=== PATIENT | female | born 1970 | race Two or more races ===

== ENCOUNTER → 2024-07-22 | Outpatient (CLI) | payer MEDICAID, SELFPAY ==
--- NOTE | 2024-07-22 13:31 | XR_ITS ---
Examination: Steroid injection greater trochanteric bursa with imaging guidance Fluoroscopy Spot fluoroscopic AP films left hip INDICATIONS: Left hip pain bursitis one year. Exam date and time: July 22, 2024 1322 hours Informed consent provided. Technique: A timeout was completed verifying correct patient, procedure, site, positioning. The patient was placed in supine position appropriate for the steroid injection The patient's site was prepped and draped in sterile fashion 5 cc 1% lidocaine administered locally for anesthesia. Sterile drape applied, maximum barrier sterile technique. Utilizing fluoroscopic guidance, 23-gauge needle placed in the greater trochanteric bursa left hip 1 cc Kenalog 40 in 5 cc 0.25% Marcaine introduced into the greater trochanteric bursitis left hip The patient was in satisfactory and stable condition on completion of the procedure Attending radiologist was present for the entire procedure Estimated blood loss 0 cc. Impression: Successful steroid injection greater trochanteric bursitis left hip with imaging guidance Fluoroscopy 0.2 minute radiation dose 4.31 milligray 1 spot fluoroscopic AP left hip film .
[2024-07-22] MEDS: BUPIVACAINE MPF 0.5% 30 ML VIAL EPID (14:04)
[2024-07-22] MEDS: TRIAMCINOLONE ACET INJ 40 MG/ML VIAL IARTICULAR (14:04)
== END | disposition home or self-care (01) ==
PROVIDERS: PCP Internal Medicine; Referring Provider Internal Medicine; Visit Provider Internal Medicine
DX: M70.62 Trochanteric bursitis, left hip (principal); S73.192D Other sprain of left hip, subsequent encounter; X58.XXXD Exposure to other specified factors, subsequent encounter
CPT/HCPCS: 20610; 77002; J3301; J3490

== ENCOUNTER 2024-08-09 08:41 | Outpatient (AMB) | payer MEDICAID, SELFPAY ==
[2024-08-09 09:03] VITALS: BP 133/84; PULSE 74; RESP 18; TEMP 36.4; O2SAT 98; BMI 37.4
--- NOTE | 2024-08-09 09:03 | PD.ORTHCLVIS ---
Vital signs 08/09/24 09:03 Height 1.55 m Height Method Measured Weight 89.84 kg Weight Measurement Method Standing Scale BMI 37.4 BP 133/84 H Blood Pressure Source Automatic Cuff Blood Pressure Location Left Upper Arm Position Sitting Respiration 18 Pulse 74 Pulse Source Monitor Temp 97.5 F Temp Source Temporal Artery Scan Pulse Oximetry (%) 98 Oxygen Delivery Method Room Air Med/Allergies Allergies & Medications Allergies No Known Allergies Allergy (Verified 08/09/24 09:04) Medication Reconciliation naproxen 500 mg tablet 500 mg PO BID #60 tabs 08/09/24 [Rx] Exam Exam Patient is in no acute distress and is cooperative with the examination today. Breathing is nonlabored. In no respiratory distress. Patient has no paraspinal tenderness. Spinal deformity cannot be appreciated. The gait of the patient is nonantalgic Bilateral extremities were evaluated and demonstrates sensation intact to light touch. Palpable pedal pulses are present. No significant edema is present. Bilateral knees were examined and the patient has full strength and range of motion.. The right hip was examined. Patient was able to flex to 90 degrees, adduct to 30 degrees, abduct to 40 degrees, internally rotate to 20 degrees, and externally rotate to 20 degrees. Patient has a negative logroll. Stinchfield is negative. The patient is nontender diffusely to touch. The left hip was examined. Patient was able to flex to 90 degrees, adduct to 30 degrees, abduct to 40 degrees, internally rotate to 20 degrees, and externally rotate to 20 degrees. Patient has a negative logroll. The stinchfield is negative. Patient is ttp to laterally. Xrays demonstrates minimal arthritis of left hip Assessment and Plan Problem List (1) Trochanteric bursitis, left hip: Status: Acute Plan: Patient is a 54-year-old female with a left hip pain and a left hip bursitis. We would like to do a repeat cortisone injection if she needs 1. She reports that the pain is actually improved substantially. Will start her with naproxen. We also discussed weight loss. Fortunately, her hip arthritis is pretty much nonexistent. We will see her back in 3 months for routine follow-up Office Procedures GNS Level of Care Nursing/Assessment Patient Status: Initial/New Patient Nursing Assessment/Reassesment: Medication Reconciliation, Update PMH in EMR and Vital Signs Coordination of Care: Complex Care and Chronic Disease 1-5, Education Complex Pt/Fam, Consent,records obtained, informed consent, 1 Ins Authorization, Lab and Imaging orders, Results/Orders obtained and Staff clarify orders Special Needs: Language special needs New Patient Charge New Patient Point Assignment: 1124 New Patient Point Charge: SEAL SKINNER Level 4 ([id number]) MA Intake Visit Data Collection New Patient or Established: New Patient (never been to [facility]) Reason for Visit:: LEFT HIP PAIN Seen by Clinical Staff ONLY (RN/MA): No Business Information Analyst Required: No PCP or OBGYN visit in last 3 months: Yes Hx Now: No Do You Feel Safe at Home: Yes Authorities Contacted: N/A Questionairres Past Medical History Past Medical History Have you ever been diagnosed with any of the following: Cardiology Problems Hypertension: Yes Respiratory Problems Smoking: No Smoking Exposure: No Subjective Visit Visit for: new patient and hip (LEFT ) Immunization / Flu Flu Vaccine in the Last 12 Months: No Flu Vaccine Exclusion Criteria: Refused by Patient History of Present Illness Chief complaint: Left hip pain Patient is a 54-year-old female with left hip bursitis and radicular leg pain. She reports the pain starts in the buttocks and radiates down her thigh. It is described as a burning and numbness and tingling. She also has pain with direct pressure on the lateral aspect of her hip. She reports it is very difficult for her to lie on her side due to the pain. She has tried ibuprofen and 1 injection of the bursa 3 weeks ago Pain Pain level (0-10): 7 Pain duration: COMES AND GOES Pain location: inside (medial), outside (lateral) and anterior Pain quality: dull, aching and burning Pain timing: night, increases with activity and stairs Associated signs & symptoms: none Ambulatory data Ambulatory device: none Treatments Number of previous injections: 2 Improvement with previous injections: Yes Number of Physical Therapy sessions: 12 Improvement with PT: Yes Improvement with NSAIDS: no Review of Systems Review of Systems: All systems negative unless otherwise noted in HPI.
== END 2024-08-09 09:19 | disposition home or self-care (01) ==
PROVIDERS: PCP Nurse Practitioner Family; Referring Provider Nurse Practitioner Family; Supervising Provider Orthopaedic Surgery Adult Reconstructive Orthopaedic Surgery; Visit Provider Orthopaedic Surgery Adult Reconstructive Orthopaedic Surgery
DX: M70.62 Trochanteric bursitis, left hip (principal); I10 Essential (primary) hypertension
CPT/HCPCS: 99204; G0463

== ENCOUNTER → 2024-11-04 | Outpatient (CLI) | payer MEDICAID, SELFPAY ==
--- NOTE | 2024-11-04 13:00 | XR_ITS ---
Examination: Steroid injection . Trochanteric bursal left hip with imaging guidance Fluoroscopy AP left hip single view Exam date and time: November 04, 2024 1319 hours INDICATIONS: Greater trochanteric bursitis, left hip pain years Informed consent provided. Technique: A timeout was completed verifying correct patient, procedure, site, positioning. The patient was placed in supine position appropriate for the steroid injection The patient's site was prepped and draped in sterile fashion 5 cc 1% lidocaine administered locally for anesthesia. Sterile drape applied, maximum barrier sterile technique. Utilizing fluoroscopic guidance, 23-gauge needle placed in the greater trochanteric bursa left hip 1 cc Kenalog 40 in 5 cc 0.25% Marcaine introduced into the greater trochanteric bursa left hip The patient was in satisfactory and stable condition on completion of the procedure Attending radiologist was present for the entire procedure Estimated blood loss 0 cc. Impression: Successful steroid injection greater trochanteric bursitis left hip with imaging guidance Fluoroscopy 0.1 minute radiation dose 3.81 milligray 1 spot fluoroscopic left hip film .
== END | disposition home or self-care (01) ==
LOC: SIRX 11-07 07:58
PROVIDERS: PCP Internal Medicine; Referring Provider Internal Medicine; Visit Provider Internal Medicine
DX: M70.62 Trochanteric bursitis, left hip (principal)
CPT/HCPCS: 20610; 77002

== ENCOUNTER → 2025-04-02 | Outpatient (CLI) | payer MEDICAID, SELFPAY ==
--- NOTE | 2025-04-02 08:30 | XR_ITS ---
Examination: Screening digital mammography, bilateral Computer aided detection 3-D breast Tomosynthesis, bilateral Date and time of exam: April 02, 2025, 0837 hours, comparison August 07, 2023 Indication: Screening Technique: Nonmagnified MLO, CC views of the breasts to been obtained, reconstructed from 3-D Tomosynthesis images. R2 computer aided detection program utilized for evaluation of suspicious masses and/or abnormal calcifications. 3-D Tomosynthesis images obtained. Findings: Scattered areas of fibroglandular density. Benign calcifications. No interval suspicious masses Impression: BI-RADS category II: Benign Findings. Recommend 1 year follow-up mammogram.
== END | disposition home or self-care (01) ==
LOC: CDIM 08:15
PROVIDERS: Referring Provider Physician Assistant; Visit Provider Physician Assistant
DX: Z12.31 Encounter for screening mammogram for malignant neoplasm of breast (principal); R92.323 Mammographic fibroglandular density, bilateral breasts; R92.1 Mammographic calcification found on diagnostic imaging of breast
CPT/HCPCS: 77063; 77067

== ENCOUNTER 2025-04-15 13:02 | Outpatient (AMB) | payer MEDICAID, SELFPAY ==
[2025-04-15 13:38] VITALS: BP 149/89; PULSE 80; RESP 19; TEMP 36.1; O2SAT 94; BMI 39.6
--- NOTE | 2025-04-15 13:38 | ORTHONT_ITS ---
Vital signs 04/15/25 13:38 Height 1.52 m Height Method Measured Weight 92.221 kg Weight Measurement Method Standing Scale BMI 39.6 BP 149/89 H Blood Pressure Source Automatic Cuff Blood Pressure Location Left Upper Arm Position Sitting Respiration 19 Pulse 80 Pulse Source Monitor Temp 96.9 F Temp Source Temporal Artery Scan Pulse Oximetry (%) 94 L Oxygen Delivery Method Room Air Med/Allergies Allergies & Medications Allergies No Known Allergies Allergy (Verified 04/15/25 13:40) Medication Reconciliation naproxen 500 mg tablet 500 mg PO BID #60 tabs 08/09/24 [Rx Confirmed 04/15/25] tramadol 25 mg tablet 25 mg PO Q6H PRN 04/15/25 [History Confirmed 04/15/25] Exam Exam Patient is in no acute distress and is cooperative with the examination today. Breathing is nonlabored. In no respiratory distress. Patient has no paraspinal tenderness. Spinal deformity cannot be appreciated. The gait of the patient is nonantalgic Bilateral extremities were evaluated and demonstrates sensation intact to light touch. Palpable pedal pulses are present. No significant edema is present. Bilateral knees were examined and the patient has full strength and range of motion.. The right hip was examined. Patient was able to flex to 90 degrees, adduct to 30 degrees, abduct to 40 degrees, internally rotate to 20 degrees, and externally rotate to 20 degrees. Patient has a negative logroll. Stinchfield is negative. The patient is nontender diffusely to touch. The left hip was examined. Patient was able to flex to 90 degrees, adduct to 30 degrees, abduct to 40 degrees, internally rotate to 20 degrees, and externally rotate to 20 degrees. Patient has a negative logroll. The stinchfield is negative. Patient is ttp to laterally. Xrays demonstrates minimal arthritis of left hip Assessment and Plan Problem List (1) Trochanteric bursitis, left hip: Status: Acute Plan: Patient is a 54-year-old female with a left hip pain and a left hip bursitis. Jesse abdullahi will see her back in 3 months for routine follow-up We recommend she see a spine surgeon if she has pain that starts in the back and radiates through to her. We explained to the patient that she has no pain in her groin, has a benign hip examination, and has normal radiographic findings. They told her to follow back up with me as they think the pain is from the hip even though she has pain that starts in her back and radiates to her toes with associated numbness and tingling. It is very clear that this is not from the hip. We recommend she see a commission specialist Office Procedures GNS Level of Care Nursing/Assessment Patient Status: Initial/New Patient Nursing Assessment/Reassesment: Medication Reconciliation, Update PMH in EMR and Vital Signs Coordination of Care: Complex Care and Chronic Disease 1-5, Education Complex P t/Fam, Consent,records obtained, informed consent, 1 Ins Authorization, Lab and Imaging orders, Results/Orders obtained and Staff clarify orders Special Needs: Language special needs New Patient Charge New Patient Point Assignment: 1124 New Patient Point Charge: MEAT AND POULTRY INSPECTOR Level 4 ([id number]) MA Intake Visit Data Collection New Patient or Established: New Patient (never been to [facility]) Reason for Visit:: L HIP BURSITIS Seen by Clinical Staff ONLY (RN/MA): No Industrial Engineering Technologist Required: Yes PCP or OBGYN visit in last 3 months: Yes Hx Now: No Do You Feel Safe at Home: Yes Authorities Contacted: N/A Questionairres Past Medical History Past Medical History Have you ever been diagnosed with any of the following: Cardiology Problems Hypertension: Yes Respiratory Problems Smoking: No Smoking Exposure: No Subjective Visit Visit for: new patient and hip (LEFT) Immunization / Flu Flu Vaccine in the Last 12 Months: Yes Flu Vaccine Exclusion Criteria: Already Received History of Present Illness Chief complaint: LEFT HIP BURSITIS Date of injury / onset of symptoms: 05/2024 HISTORY OF PRESENT ILLNESS I, Taz Lamb, have obtained verbal consent from the patient, to be recorded during this encounter which may include, but not limited to, medical history, examination, treatment plans, and relevant health information.? Patient was informed that recording will be read and reviewed by myself before inclusion in the medical chart. The patient is a pleasant 54-year-old female who presents today for evaluation of her left hip. She is accompanied by an sales and marketing coordinator. She has been experiencing pain in her left hip since May 2024. The pain, described as a burning sensation, radiates down her leg and originates from the back. She also reports numbness in the affected area. She was referred to a specialist who informed her that her spine was normal and did not require any intervention. She has undergone x-rays of her back and was subsequently referred to a specialist. She has not engaged in physical therapy. Despite taking tramadol twice daily, she reports no relief. She quantifies her pain as a constant 10 out of 10 throughout the day. She has received one injection, which unfortunately did not alleviate her symptoms. She has no pain in her groin Personal History Occupation: PROGRAMMING MANAGER Pain Pain level (0-10): 10 Pain duration: ALL DAY Pain location: outside (lateral) and anterior Pain quality: sharp, dull and aching Pain timing: night, increases with activity and stairs Associated signs & symptoms: numbness and weakness Ambulatory data Ambulatory device: none Treatments Number of previous injections: 1 Improvement with previous injections: No Improvement with PT: No Improvement with NSAIDS: no Review of Systems Review of Systems: All systems negative unless otherwise noted in HPI.
== END 2025-04-15 13:44 | disposition home or self-care (01) ==
PROVIDERS: PCP Internal Medicine; Referring Provider Internal Medicine; Supervising Provider Orthopaedic Surgery Adult Reconstructive Orthopaedic Surgery; Visit Provider Orthopaedic Surgery Adult Reconstructive Orthopaedic Surgery
DX: M70.62 Trochanteric bursitis, left hip (principal); M25.552 Pain in left hip; I10 Essential (primary) hypertension
CPT/HCPCS: 99204; G0463